=== PATIENT | female | born 1990 | race Caucasian/White ===

== ENCOUNTER 2016-10-27 16:50 | Emergency (ER) | payer BC ==
[~2016-10-27] VITALS: Ht 172.7 cm; Wt 58.0 kg
[2016-10-27] MEDS ORDERED: IBUPROFEN 600MG TABLET PO ONE (17:45)
[2016-10-27] MEDS ORDERED: CYCLOBENZAPRINE 10MG TABLET PO ONE (17:45)
[2016-10-27 19:45] VITALS: BP 110/75
== END 2016-10-27 19:48 | disposition home or self-care (01) ==
LOC: ER 16:51
DX: S16.1XXA Strain of muscle, fascia and tendon at neck level, initial encounter (principal); S39.012A Strain of muscle, fascia and tendon of lower back, initial encounter; S20.219A Contusion of unspecified front wall of thorax, initial encounter; R07.2 Precordial pain; M79.645 Pain in left finger(s); R06.00 Dyspnea, unspecified; R11.10 Vomiting, unspecified; R06.4 Hyperventilation; V43.62XA Car passenger injured in collision with other type car in traffic accident, initial encounter; Y93.89 Activity, other specified; Y92.411 Interstate highway as the place of occurrence of the external cause
CPT/HCPCS: 71010; 99283